=== PATIENT | female | born 1980 | race Hispanic/Latino ===

== ENCOUNTER 2018-07-26 13:56 | Emergency (ER) | payer OTHER ==
[2018-07-26] MEDS ORDERED: DIPHENHYDRAMINE HCL 25 MG CAPSULE ONE (14:13)
[2018-07-26] MEDS ORDERED: PREDNISONE 20 MG TABLET ONE (14:13)
[2018-07-26] MEDS ORDERED: IBUPROFEN 400 MG TABLET ONE (14:13)
== END 2018-07-26 14:40 | disposition home or self-care (01) ==
LOC: EDH 13:56
DX: T63.441A Toxic effect of venom of bees, accidental (unintentional), initial encounter (principal); I10 Essential (primary) hypertension; Z91.030 Bee allergy status; Z98.890 Other specified postprocedural states; Y92.89 Other specified places as the place of occurrence of the external cause
CPT/HCPCS: 99284; Q0163